=== PATIENT | male | born 1995 | race Two or more races ===

== ENCOUNTER 2017-07-04 11:03 | Emergency (ER) | payer OTHER ==
[2017-07-04 11:41] VITALS: TEMP 98.2; BMI 29.2
[2017-07-04] MEDS ORDERED: ACETAMINOPHEN 1000 MG/100 ML VIAL (NON FORMULARY) IVPB ONE (12:28)
[2017-07-04] MEDS ORDERED: FAMOTIDINE 20 MG/50 ML IVPB 20 MG/50 ML MG IVPB ONE ×2 (12:28→13:16)
[2017-07-04] MEDS ORDERED: SODIUM CHLORIDE 1,000 ML IV STA (12:28)
--- NOTE | 2017-07-04 12:37 | PDOC ---
History of Present Illness - General Chief Complaint: Chest Pain Stated Complaint: CHEST PAIN Time Seen by Provider: 07/04/17 12:00 - History of Present Illness Initial Comments: 07/04/17 12:37 "The patient is a 22 year old male, with a significant past medical history of unspecified arrhythmia and GERD (taking omeprazole), who presents to the emergency department via ems with complaint of rapid heartbeat and chest discomfort today. The patient states he was smoking marijuana when he developed palpitations and chest discomfort. He felt like his heart was racing very quickly. When EMS arrived, they found his HR to be 200. He was told to bear down and blow into a straw, which he states helped alleviate his symptoms significantly. Pt now denies palpitations. Denies CP/SOB. Pt reports feeling anxious but otherwise back to normal. He states he has experienced these symptoms once before but not as severe. He was treated in an ED and was subsequently referred to a soap press feeder in [place], but he cannot remember the name of this doctor. 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 [place] (Pt states he will make f/u appt) " Past History - Past Medical History Allergies/Adverse Reactions: Allergies Allergy/AdvReac Type Severity Reaction Status Date / Time No Known Allergies Allergy Verified 07/04/17 11:41 Asthma: Yes Cardiac Disorders: Yes (a fib non compliant) COPD: No GI Disorders: Yes (gerd) - Suicide/Smoking/Psychosocial Hx Smoking History: Never smoked Have you smoked in the past 12 months: Yes Number of Cigarettes Smoked Daily: 5 Information on smoking cessation initiated: No Hx Alcohol Use: No Drug/Substance Use Hx: No Substance Use Type: Marijuana Review of Systems - Review of Systems Comments:: 07/04/17 12:42 """GENERAL/CONSTITUTIONAL: No fever or chills. No weakness. HEAD, EYES, EARS, NOSE AND THROAT: No change in vision. No ear pain or discharge. No sore throat. CARDIOVASCULAR: (+) chest pain. palpitations. No shortness of breath. RESPIRATORY: No cough, wheezing, or hemoptysis. GASTROINTESTINAL: No nausea, vomiting, diarrhea or constipation. GENITOURINARY: No dysuria, frequency, or change in urination. MUSCULOSKELETAL: No joint or muscle swelling or pain. No neck or back pain. SKIN: No rash NEUROLOGIC: No headache, vertigo, loss of consciousness, or change in strength/ sensation. ENDOCRINE: No increased thirst. No abnormal weight change. HEMATOLOGIC/LYMPHATIC: No anemia, easy bleeding, or history of blood clots. ALLERGIC/IMMUNOLOGIC: No hives or skin allergy. """ *Physical Exam - Vital Signs Last Vital Signs Temp Pulse Resp BP Pulse Ox 98.2 F 105 H 16 120/61 100 07/04/17 11:05 07/04/17 11:05 07/04/17 11:05 07/04/17 11:05 07/04/17 11:05 - Physical Exam Comments: 07/04/17 12:42 """GENERAL: Awake, alert, and fully oriented, in no acute distress. HEAD: No signs of trauma EYES: PERRLA, EOMI, sclera anicteric, conjunctiva clear ENT: Auricles normal inspection, hearing grossly normal, nares patent, oropharynx clear without exudates. Moist mucosa NECK: Nontender, no stepoffs, Normal ROM, supple, no lymphadenopathy, JVD, or masses LUNGS: Breath sounds equal, clear to auscultation bilaterally. No wheezes, and no crackles HEART: Regular rate and rhythm, normal S1 and S2, no murmurs, rubs or gallops ABDOMEN: Soft, nontender, normoactive bowel sounds. No guarding, no rebound. No masses EXTREMITIES: Normal range of motion, no edema. No clubbing or cyanosis. No cords, erythema, or tenderness NEUROLOGICAL: Cranial nerves II through XII intact. 5/5 strength and sensation in all extremities, Normal speech, normal gait, normal cerebellar function SKIN: Warm, Dry, normal turgor, no rashes or lesions noted. """ Heart Score/ECG Review - ECG Impressions Comment:: 07/04/17 12:42 NSR with occasional PACs, no ANGELA/STDs, no TWIs, intervals wnl, no delta wave, rate 78 ED Treatment Course - LABORATORY CBC & Chemistry Diagram: 07/04/17 13:20 07/04/17 13:20 - ADDITIONAL ORDERS Additional order review: Laboratory Results 07/04/17 07/04/17 07/04/17 13:20 13:20 13:12 Sodium 141 Potassium 4.1 Chloride 108 H Carbon Dioxide 27 Anion Gap 6 L BUN 12 Creatinine 1.0 Creat Clearance w eGFR > 60 Random Glucose 86 Calcium 8.9 Phosphorus 1.7 L Magnesium 2.1 Total Bilirubin 0.8 AST 17 ALT 15 Alkaline Phosphatase 82 Creatine Kinase 121 Troponin I < 0.02 Total Protein 7.4 Albumin 4.2 TSH 0.74 07/04/17 13:20 RBC 5.57 MCV 83.6 MCHC 32.6 RDW 13.5 MPV 10.9 Neutrophils % 75.9 Lymphocytes % 15.9 Monocytes % 7.9 Eosinophils % 0.1 Basophils % 0.2 - RADIOLOGY Radiology Studies Ordered: Category Date Time Status CHEST X-RAY PORTABLE* [RAD] Stat Radiology 07/04/17 12:28 Taken - Medications Given in the ED: ED Medications Discontinued Medications Generic Name Dose Route Start Last Admin Trade Name Freq PRN Reason Stop Dose Admin Acetaminophen 1,000 mg 07/04/17 12:28 07/04/17 13:22 Ofirmev Injection - IVPB 07/04/17 12:29 1,000 mg ONCE ONE Administration Famotidine/Sodium Chloride 20 mg in 50 mls @ 100 mls/hr 07/04/17 12:28 13:48 Pepcid 20 Mg Premixed Ivpb - IVPB 07/04/17 12:57 100 mls/hr ONCE ONE Administration Sodium Chloride 1,000 mls @ 1,000 mls/hr 07/04/17 12:28 07/04/17 13:15 Normal Saline - IV 07/04/17 13:27 1,000 mls/hr ASDIR STA Administration Medical Decision Making - Medical Decision Making 07/04/17 12:30 22 M with transient tachyarrhythmia, now resolved after vagal maneuver by EMS. EKG now in sinus rhythm, no evidence of WPW, long QT, brugada, HOCM. Suspect SVT , though no rhythm strip available from EMS to demonstrate this. Possibly triggered by substance use, as pt was smoking marijuana. Denies sympathomimetic use but reports feeling anxious. - Labs - IVF - Monitor in ED 07/04/17 14:54 Labs wnl, CXR clear on my read HR now 65. Pt reassessed - now reports complete resolution of symptoms. Denies any recurrent chest pain or palpitations. Pt has been in sinus rhythm on monitor for duration of ED stay. Pt is well appearing, with normal vitals. Clinically stable for DC at this time. I discussed the physical exam findings, ancillary test results and final diagnoses with the patient. I answered all of the patient's questions. The patient was satisfied with the care received and felt comfortable with the discharge plan and treatment plan. The patient agrees to follow up with the primary care physician within 24-72 hours. *DC/Admit/Observation/Transfer Diagnosis at time of Disposition: Tachycardia - Discharge Dispostion Disposition: HOME - Referrals Referrals: ON STAFF,NOT [Primary Care Provider] - Torey Phillips MD [Staff Physician] - - Patient Instructions Printed Discharge Instructions: DI for Tachycardia Additional Instructions: You must follow up with your soap press feeder within 72 hours. You had a very fast and abnormal heart rhythm today. Ask your soap press feeder about an electrophysiology study (EP study). If you experience any recurrent palpitations, chest pain, shortness of breath, or any other concerning symptoms, return to the ER immediately. Avoid drinking any caffeinated drinks, alcohol, or other substances, as this may contribute to abnormal heart rhythms. - Post Discharge Activity Forms/Work/School Notes: Back to Work, Back to School - Attestations Physician Attestion: 07/04/17 14:58 I, Dr. Federico Espinal MD, attest that this document has been prepared under my direction and personally reviewed by me in its entirety. I further attest, that it accurately reflects all work, treatment, procedures and medical decision -making performed by me.
[2017-07-04] MEDS ORDERED: ACETAMINOPHEN INJECTION 100 ML IVPB ONE (13:16)
[2017-07-04 13:36] LABS: BASO % 0.2 % (0-2.0); EOS % 0.1 % (0-4.5); HEMATOCRIT 46.6 % (35.4-49); HEMOGLOBIN 15.2 GM/dL (11.7-16.9); LYMPH % 15.9 % (8-40); MCH 27.2 pg (25.7-33.7); MCHC 32.6 g/dl (32.0-35.9); MEAN CELL VOLUME 83.6 fl (80-96); MEAN PLT VOLUME 10.9 fl (7.5-11.1); MONO % 7.9 % (3.8-10.2); NEUT % 75.9 % (42.8-82.8); PLATELET COUNT 168 K/MM3 (134-434); RBC 5.57 M/mm3 (4.00-5.60); RDW 13.5 % (11.9-15.9); WHITE BLOOD COUNT 7.9 K/mm3 (4.0-10.0)
[2017-07-04 13:58] LABS: ALBUMIN 4.2 g/dl (3.4-5.0); ALK PHOS 82 U/L (45-117); ANION GAP 6 (8-16); BLOOD UREA NITROGEN 12 mg/dL (7-18); CALCIUM 8.9 mg/dL (8.5-10.1); CHLORIDE 108 mmol/L (98-107); CO2 27 mmol/L (21-32); GLUCOSE,RANDOM 86 mg/dL (74-106); PHOSPHOROUS 1.7 mg/dL (2.5-4.9); POTASSIUM 4.1 mmol/L (3.5-5.1); SGOT/AST 17 U/L (15-37); SGPT/ALT 15 U/L (12-78); SODIUM 141 mmol/L (136-145); TOT PROT 7.4 g/dl (6.4-8.2)
[2017-07-04 13:58] LABS: MAGNESIUM 2.1 mg/dL (1.8-2.4)
[2017-07-04 14:05] LABS: BILIRUBIN,TOTAL 0.8 mg/dL (0.2-1.0)
[2017-07-04 15:48] VITALS: BP 118/60; PULSE 102
== END 2017-07-04 15:20 | disposition home or self-care (01) ==
LOC: JER 11:03
PROC: 3E0337Z Introduction of Electrolytic and Water Balance Substance into Peripheral Vein, Percutaneous Approach (ICD-10-PCS; principal; 2017-07-04)
PROC: 3E033GC Introduction of Other Therapeutic Substance into Peripheral Vein, Percutaneous Approach (ICD-10-PCS; 2017-07-04)
PROC: 3E033NZ Introduction of Analgesics, Hypnotics, Sedatives into Peripheral Vein, Percutaneous Approach (ICD-10-PCS; 2017-07-04)
DX: R00.0 Tachycardia, unspecified (principal); I48.91 Unspecified atrial fibrillation; Z91.14 Patient's other noncompliance with medication regimen; K21.9 Gastro-esophageal reflux disease without esophagitis; F17.210 Nicotine dependence, cigarettes, uncomplicated
CPT/HCPCS: 36415; 71045-TC-FY; 80053; 82550; 83735; 84100; 84443; 84484; 85025; 96361; 96365; 96375; 99283-25; J0131; J7030